=== PATIENT | female | born 1980 | race Caucasian/White ===

== ENCOUNTER 2019-11-18 01:56 | Emergency (ER) | payer OTHER ==
[2019-11-18] MEDS ORDERED: Zofran 4 MG/2 ML VIAL IV ONE (02:09)
[2019-11-18] MEDS ORDERED: Hydromorphone 1 mg/ml Ampule IV ONE (02:09)
[2019-11-18] MEDS ORDERED: Sodium Chloride 0.9% 1000 ML 1,000 ML IV STA (02:09)
[2019-11-18] MEDS ORDERED: PROTONIX 40 MG IV IV ONE ×2 (02:09→02:23)
[2019-11-18] MEDS ORDERED: Hydromorphone 1 mg/ml Ampule ONE (02:23)
[2019-11-18] MEDS ORDERED: Sodium Chloride 0.9% 1000 ML 1,000 ML ONE (02:23)
[2019-11-18] MEDS ORDERED: Zofran 4 MG/2 ML VIAL ONE (02:23)
[2019-11-18 02:29] LABS: Lactic Acid 1.9 (0.4-2.0)
[2019-11-18 02:44] LABS: Absolute Neutrophil Ct (ANC) 6.26 (1.4-6.9); BASOPHIL % 0.2 % (0.0-0.4); Basophil (Absolute #) 0.03 (0-0.4); Eosinophil % 1.5 % (0.00-5.0); Eosinophil (Absolute #) 0.19 (0-0.5); Hemoglobin 11.1 gm/dl (12.0-16.0); Lymphocyte (Absolute #) 5.29 (1.0-4.6); Lymphocytes % 40.8 % (24.0-44.0); Mean Cell Volume 78.6 fl (78-100); Mean Corpuscular Hemoglobin 23.6 pg (26-32); Mean Platelet Volume 11.2 fl (7.5-11.0); Monocyte (Absolute #) 1.19 (0.0-1.3); Monocytes % 9.2 % (0.0-12.0); Neutrophil % 48.3 % (36.0-66.0); Platelet Count 419 K/mm3 (150-450); Red Blood Count 4.71 M/mm3 (4.1-5.4); Red Cell Distribution Width 15.5 % (11.5-14.0)
[2019-11-18 02:51] LABS: INR 0.97 (0.8-3.0)
[2019-11-18 02:55] LABS: ALBUMIN 3.9 g/dL (3.5-5.0); ALKALINE PHOSPHATASE 116 U/L (38-126); AMYLASE 108 U/L (30-110); ANION GAP 12.5 MEQ/L (5-15); BLOOD UREA NITROGEN 9 mg/dL (7-17); CHLORIDE 108 mmol/L (98-107); Calcium 8.9 mg/dL (8.4-10.2); Carbon Dioxide 21 mmol/L (22-30); Creatinine 1 0.63 mg/dL (0.52-1.04); Glucose 127 mg/dL (74-106); LIPASE 175 U/L (23-300); Potassium 3.5 mmol/L (3.5-5.1); SGOT/AST 46 U/L (14-36); SGPT/ALT 34 U/L (0-35); SODIUM 138 mmol/L (137-145); Total Protein 7.8 g/dL (6.3-8.2)
[2019-11-18 03:28] LABS: Slide Review 1 YES
[2019-11-18 04:18] VITALS: O2SAT 99
[2019-11-18 04:55] LABS: Bacteria NONE SEEN /HPF (NEGATIVE); Epithelial Cells OCCASIONAL /HPF (FEW); Hyaline Casts 0-2 /LPF (0-2); Mucus SLIGHT /HPF (NEGATIVE); RBC NONE SEEN /HPF (0-2); WBC NONE SEEN /HPF (0-5)
[2019-11-18 05:00] LABS: Appearance CLEAR (CLEAR); Bilirubin NEGATIVE (NEGATIVE); Blood MODERATE Ery/ul (0-5); Glucose NEGATIVE (NEGATIVE); Ketones NEGATIVE (NEGATIVE); Leukocyte Esterase NEGATIVE (NEGATIVE); Nitrite NEGATIVE (NEGATIVE); Protein,Urine Dip NEGATIVE (Negative); Urobilinogen NORMAL mg/dL (0-1)
--- NOTE | 2019-11-18 06:08 | ERPHSYRPT ---
- History of Present Illness Time Seen by Provider: 11/18/19 02:20 Historian: patient Exam Limitations: no limitations Patient Subjective Stated Complaint: pt states, "I woke up from a sleep with terrrible abdominal pain". Triage Nursing Assessment: pt c/o upper abd pain, that woke her up from a sleep. Rates pain a 9 on 0-10 scale. Pt vomited x1 at home, denies any diarrhea or nausea. Abd lg and soft with active bs x4 quad, nontender. Pain does radiate a little to her back. Abd nontender on palpation. Lungs clear, heart tones reg. Physician History: ppatient is a 31-year-old female who presents with complaint of epigastric pain going through to the back. She awoke from a sound sleep. Sheet he that about 11 PM before going to bed she's had nausea and vomiting she is Jaime was because of DVT and PE. She has had no abdominal surgeries in the past. She does have a history of ultrasound which showed gallstones. Timing/Duration: hour(s) (4) Activities at Onset: none Quality: cramping, stabbing Abdominal Pain Onset Location: epigastric Pain Radiation: back Severity of Pain-Max: severe Severity of Pain-Current: severe Modifying Factors: Improves With: position Associated Symptoms: nausea, vomiting Previous symptoms: no prior history Allergies/Adverse Reactions: cefaclor [From Ceclor] Allergy (Verified 06/14/16 18:17) Shortness of Breath montelukast sodium [From Singulair] Allergy (Verified 06/14/16 18:17) Shortness of Breath Home Medications: Albuterol Sulfate [Proventil Hfa] 2 puff IH BID PRN PRN 01/17/15 [History] Fluticasone Propionate [Flovent Hfa] 2 puff IH BID 01/17/15 [History] Omeprazole 40 mg PO BID 01/17/15 [History] Thyroid,Pork [Wp Thyroid] 32.5 mg PO DAILY 12/29/15 [History] Apixaban [Eliquis] 2.5 mg PO BID 06/14/16 [History] Hx Tetanus, Diphtheria Vaccination/Date Given: No Hx Influenza Vaccination/Date Given: No Hx Pneumococcal Vaccination/Date Given: No Immunizations Up to Date: No - Review of Systems Constitutional: No Fever, No Chills Eyes: No Symptoms Ears, Nose, & Throat: No Symptoms Respiratory: No Cough, No Dyspnea Cardiac: No Chest Pain, No Edema, No Syncope Abdominal/Gastrointestinal: Abdominal Pain, Nausea, Vomiting, No Diarrhea Genitourinary Symptoms: No Symptoms, No Dysuria Musculoskeletal: No Symptoms, No Back Pain, No Neck Pain Skin: No Symptoms, No Rash Neurological: No Symptoms, No Dizziness, No Focal Weakness, No Sensory Changes Psychological: No Symptoms Endocrine: No Symptoms Hematologic/Lymphatic: No Symptoms Immunological/Allergic: No Symptoms All Other Systems: Reviewed and Negative - Past Medical History Pertinent Past Medical History: Yes Neurological History: No Pertinent History ENT History: No Pertinent History Cardiac History: No Pertinent History Respiratory History: Asthma, Pulmonary Embolism Endocrine Medical History: Hypothyroidism Musculoskeletal History: Fractures GI Medical History: No Pertinent History History: No Pertinent History Psycho-Social History: Panic Disorder Female Reproductive Disorders: No Pertinent History Other Medical History: NOTES PAST R ANKLE FRACTURES - Past Surgical History Past Surgical History: Yes Neuro Surgical History: No Pertinent History Cardiac: No Pertinent History Respiratory: No Pertinent History Gastrointestinal: No Pertinent History Genitourinary: No Pertinent History Musculoskeletal: No Pertinent History, Orthopedic Surgery Female Surgical History: No Pertinent History Other Surgical History: 3 KNEE SURGERIES - Social History Smoking Status: Former smoker Exposure to second hand smoke: Yes Drug Use: none Patient Lives Alone: No - Female History Hx Last Menstrual Period: now Hx Now: No - Nursing Vital Signs Nursing Vital Signs: Initial Vital Signs Temperature 97.9 F 11/18/19 02:05 Pulse Rate 76 11/18/19 02:05 Respiratory Rate 24 11/18/19 02:05 Blood Pressure 131/91 11/18/19 02:05 O2 Sat by Pulse Oximetry 100 11/18/19 02:05 Pain Scale Pain Intensity 9 - Physical Exam General Appearance: no apparent distress, moderate distress, alert Eye Exam: PERRL/EOMI, eyes nml inspection Ears, Nose, Throat Exam: normal ENT inspection, pharynx normal, moist mucous membranes Neck Exam: normal inspection, non-tender, supple, full range of motion Respiratory Exam: normal breath sounds, lungs clear, No respiratory distress Cardiovascular Exam: regular rate/rhythm, normal heart sounds Gastrointestinal/Abdomen Exam: soft, tenderness, guarding, rebound, No mass Pelvic Exam: not done Rectal Exam: deferred Back Exam: normal inspection, normal range of motion, No CVA tenderness, No vertebral tenderness Extremity Exam: normal inspection, normal range of motion, pelvis stable Neurologic Exam: alert, oriented x 3, cooperative, normal mood/affect, nml cerebellar function, sensation nml, No motor deficits Skin Exam: normal color, warm, dry SpO2: 99 - Course Nursing assessment & vital signs reviewed: Yes Ordered Tests: Active Orders 24 hr Category Date Time Status IV Insertion STAT Care 11/18/19 02:09 Active ABDOMEN AND PELVIS W CONTRAST [CT] Stat Exams 11/18/19 02:10 Taken AMYLASE Stat Lab 11/18/19 02:42 Completed CBC W DIFF Stat Lab 11/18/19 02:42 Completed CMP Stat Lab 11/18/19 02:42 Completed HCG QUALITATIVE,SERUM Stat Lab 11/18/19 02:42 Completed LIPASE Stat Lab 11/18/19 02:42 Completed Lactic Acid Stat Lab 11/18/19 02:20 Completed Manual Differential NC Stat Lab 11/18/19 02:42 Completed PROTIME WITH INR Stat Lab 11/18/19 02:42 Completed TROPONIN Q3H Lab 11/18/19 02:42 Completed TROPONIN Q3H Lab 11/18/19 05:09 Completed TROPONIN Q3H Lab 11/18/19 08:15 Ordered TROPONIN Q3H Lab 11/18/19 11:15 Ordered TROPONIN Q3H Lab 11/18/19 14:15 Ordered UA W/RFX UR CULTURE Stat Lab 11/18/19 04:17 Completed Medication Summary Discontinued Medications Generic Name Dose Route Start Last Admin Trade Name Freq PRN Reason Stop Dose Admin Hydromorphone HCl 1 mg 11/18/19 02:09 11/18/19 02:26 Hydromorphone 1 Mg/Ml Ampule IV 11/18/19 02:10 1 mg STAT ONE Administration Hydromorphone HCl Confirm 11/18/19 02:23 Hydromorphone 1 Mg/Ml Ampule Administered 11/18/19 02:24 Dose 1 mg .ROUTE .STK-MED ONE Sodium Chloride 1,000 mls @ 999 mls/hr 11/18/19 02:09 11/18/19 02:25 Sodium Chloride 0.9% 1000 Ml IV 11/18/19 03:09 999 mls/hr .Q1H1M STA Administration Sodium Chloride Confirm 11/18/19 02:23 Sodium Chloride 0.9% 1000 Ml Administered 11/18/19 02:24 Dose 1,000 mls @ ud .ROUTE .STK-MED ONE Ondansetron HCl 4 mg 11/18/19 02:09 11/18/19 02:26 Zofran 4 Mg/2 Ml Vial IV 11/18/19 02:10 4 mg STAT ONE Administration Ondansetron HCl Confirm 11/18/19 02:23 Zofran 4 Mg/2 Ml Vial Administered 11/18/19 02:24 Dose 4 mg .ROUTE .STK-MED ONE Pantoprazole Sodium 40 mg 11/18/19 02:09 11/18/19 02:26 Protonix 40 Mg Iv IV 11/18/19 02:10 40 mg STAT ONE Administration Pantoprazole Sodium Confirm 11/18/19 02:23 Protonix 40 Mg Iv Administered 11/18/19 02:24 Dose 40 mg IV .STK-MED ONE Lab/Rad Data: Laboratory Result Diagrams 11/18/19 02:42 11/18/19 02:42 Laboratory Results 11/18/19 11/18/19 11/18/19 Range/Units 05:09 04:17 02:42 WBC (4.0-10.5) K/mm3 RBC (4.1-5.4) M/mm3 Hgb (12.0-16.0) gm/dl Hct (35-47) % MCV (78-100) fl MCH (26-32) pg MCHC (32-36) g/dl RDW (11.5-14.0) % Plt Count (150-450) K/mm3 MPV (7.5-11.0) fl Gran % (36.0-66.0) % Eos # (Auto) (0-0.5) Absolute Lymphs (auto) (1.0-4.6) Absolute Monos (auto) (0.0-1.3) Lymphocytes % (24.0-44.0) % Monocytes % (0.0-12.0) % Eosinophils % (0.00-5.0) % Basophils % (0.0-0.4) % Absolute Granulocytes (1.4-6.9) Basophils # (0-0.4) PT (9.95-12.35) SECONDS INR (0.8-3.0) Sodium (137-145) mmol/L Potassium (3.5-5.1) mmol/L Chloride (98-107) mmol/L Carbon Dioxide (22-30) mmol/L Anion Gap (5-15) MEQ/L BUN (7-17) mg/dL Creatinine (0.52-1.04) mg/dL Estimated GFR ML/MIN Glucose (74-106) mg/dL Lactic Acid (0.4-2.0) Calcium (8.4-10.2) mg/dL Total Bilirubin (0.2-1.3) mg/dL AST (14-36) U/L ALT (0-35) U/L Alkaline Phosphatase (38-126) U/L Troponin I < 0.012 (0.000-0.034) ng/mL Serum Total Protein (6.3-8.2) g/dL Albumin (3.5-5.0) g/dL Amylase (30-110) U/L Lipase (23-300) U/L Serum , Qual NEGATIVE (Negative) Urine Color STRAW (YELLOW) Urine Appearance CLEAR (CLEAR) Urine pH 6.0 (5-6) Ur Specific [place] 1.020 (1.005-1.025) Urine Protein NEGATIVE (Negative) Urine Ketones NEGATIVE (NEGATIVE) Urine Blood MODERATE (0-5) Azam/ul Urine Nitrite NEGATIVE (NEGATIVE) Urine Bilirubin NEGATIVE (NEGATIVE) Urine Urobilinogen NORMAL (0-1) mg/dL Ur Leukocyte Esterase NEGATIVE (NEGATIVE) Urine WBC (Auto) NONE SEEN (0-5) /HPF Urine RBC (Auto) NONE SEEN (0-2) /HPF U Hyaline Cast (Auto) 0-2 (0-2) /LPF U Epithel Cells (Auto) OCCASIONAL (FEW) /HPF Urine Bacteria (Auto) NONE SEEN (NEGATIVE) /HPF Urine Mucus (Auto) SLIGHT (NEGATIVE) /HPF Urine Culture Reflexed NO (NO) Urine Glucose NEGATIVE (NEGATIVE) mg/dL Slides for Path Review 11/18/19 11/18/19 11/18/19 Range/Units 02:42 02:42 02:42 WBC (4.0-10.5) K/mm3 RBC (4.1-5.4) M/mm3 Hgb (12.0-16.0) gm/dl Hct (35-47) % MCV (78-100) fl MCH (26-32) pg MCHC (32-36) g/dl RDW (11.5-14.0) % Plt Count (150-450) K/mm3 MPV (7.5-11.0) fl Gran % (36.0-66.0) % Eos # (Auto) (0-0.5) Absolute Lymphs (auto) (1.0-4.6) Absolute Monos (auto) (0.0-1.3) Lymphocytes % (24.0-44.0) % Monocytes % (0.0-12.0) % Eosinophils % (0.00-5.0) % Basophils % (0.0-0.4) % Absolute Granulocytes (1.4-6.9) Basophils # (0-0.4) PT 11.0 (9.95-12.35) SECONDS INR 0.97 (0.8-3.0) Sodium 138 (137-145) mmol/L Potassium 3.5 (3.5-5.1) mmol/L Chloride 108 H (98-107) mmol/L Carbon Dioxide 21 L (22-30) mmol/L Anion Gap 12.5 (5-15) MEQ/L BUN 9 (7-17) mg/dL Creatinine 0.63 (0.52-1.04) mg/dL Estimated GFR > 60.0 ML/MIN Glucose 127 H (74-106) mg/dL Lactic Acid (0.4-2.0) Calcium 8.9 (8.4-10.2) mg/dL Total Bilirubin 0.40 (0.2-1.3) mg/dL AST 46 H (14-36) U/L ALT 34 (0-35) U/L Alkaline Phosphatase 116 (38-126) U/L Troponin I < 0.012 (0.000-0.034) ng/mL Serum Total Protein 7.8 (6.3-8.2) g/dL Albumin 3.9 (3.5-5.0) g/dL Amylase 108 (30-110) U/L Lipase 175 (23-300) U/L Serum , Qual (Negative) Urine Color (YELLOW) Urine Appearance (CLEAR) Urine pH (5-6) Ur Specific [place] (1.005-1.025) Urine Protein (Negative) Urine Ketones (NEGATIVE) Urine Blood (0-5) Azam/ul Urine Nitrite (NEGATIVE) Urine Bilirubin (NEGATIVE) Urine Urobilinogen (0-1) mg/dL Ur Leukocyte Esterase (NEGATIVE) Urine WBC (Auto) (0-5) /HPF Urine RBC (Auto) (0-2) /HPF U Hyaline Cast (Auto) (0-2) /LPF U Epithel Cells (Auto) (FEW) /HPF Urine Bacteria (Auto) (NEGATIVE) /HPF Urine Mucus (Auto) (NEGATIVE) /HPF Urine Culture Reflexed (NO) Urine Glucose (NEGATIVE) mg/dL Slides for Path Review 11/18/19 11/18/19 Range/Units 02:42 02:20 WBC 13.0 H (4.0-10.5) K/mm3 RBC 4.71 (4.1-5.4) M/mm3 Hgb 11.1 L (12.0-16.0) gm/dl Hct 37.0 (35-47) % MCV 78.6 (78-100) fl MCH 23.6 L (26-32) pg MCHC 30.0 L (32-36) g/dl RDW 15.5 H (11.5-14.0) % Plt Count 419 (150-450) K/mm3 MPV 11.2 H (7.5-11.0) fl Gran % 48.3 (36.0-66.0) % Eos # (Auto) 0.19 (0-0.5) Absolute Lymphs (auto) 5.29 H (1.0-4.6) Absolute Monos (auto) 1.19 (0.0-1.3) Lymphocytes % 40.8 (24.0-44.0) % Monocytes % 9.2 (0.0-12.0) % Eosinophils % 1.5 (0.00-5.0) % Basophils % 0.2 (0.0-0.4) % Absolute Granulocytes 6.26 (1.4-6.9) Basophils # 0.03 (0-0.4) PT (9.95-12.35) SECONDS INR (0.8-3.0) Sodium (137-145) mmol/L Potassium (3.5-5.1) mmol/L Chloride (98-107) mmol/L Carbon Dioxide (22-30) mmol/L Anion Gap (5-15) MEQ/L BUN (7-17) mg/dL Creatinine (0.52-1.04) mg/dL Estimated GFR ML/MIN Glucose (74-106) mg/dL Lactic Acid 1.9 (0.4-2.0) Calcium (8.4-10.2) mg/dL Total Bilirubin (0.2-1.3) mg/dL AST (14-36) U/L ALT (0-35) U/L Alkaline Phosphatase (38-126) U/L Troponin I (0.000-0.034) ng/mL Serum Total Protein (6.3-8.2) g/dL Albumin (3.5-5.0) g/dL Amylase (30-110) U/L Lipase (23-300) U/L Serum , Qual (Negative) Urine Color (YELLOW) Urine Appearance (CLEAR) Urine pH (5-6) Ur Specific [place] (1.005-1.025) Urine Protein (Negative) Urine Ketones (NEGATIVE) Urine Blood (0-5) Azam/ul Urine Nitrite (NEGATIVE) Urine Bilirubin (NEGATIVE) Urine Urobilinogen (0-1) mg/dL Ur Leukocyte Esterase (NEGATIVE) Urine WBC (Auto) (0-5) /HPF Urine RBC (Auto) (0-2) /HPF U Hyaline Cast (Auto) (0-2) /LPF U Epithel Cells (Auto) (FEW) /HPF Urine Bacteria (Auto) (NEGATIVE) /HPF Urine Mucus (Auto) (NEGATIVE) /HPF Urine Culture Reflexed (NO) Urine Glucose (NEGATIVE) mg/dL Slides for Path Review YES - Progress Progress: improved - Departure Departure Disposition: Home Clinical Impression: Biliary colic Condition: Stable Critical Care Time: No Referrals: OMAR ÁLVAREZ [Primary Care Provider] - Instructions: Acute Abdomen (Belly Pain), Adult (DC), Gallstones (DC) Prescriptions: Hydrocodone/APAP 5-325 Tab^^^ [[facility]iance 5-325 Tablet^^^] 1 tab PO Q6HPRN PRN #10 tablet MDD 6 PRN Reason: Pain PANTOPRAZOLE 40 mg Tablet [Protonix 40MG Tablet] 40 mg PO QAM 30 Days #30 tab
[2019-11-18 06:26] VITALS: BP 104/61; PULSE 74
--- NOTE | 2019-11-18 07:43 | XRAY ---
Indication: Abdomen pain and elevated AST. Multiple contiguous axial images obtained through the abdomen and pelvis using 80 cc of Isovue-370 contrast only. Comparison: None Lung bases are clear. Heart is not enlarged. Stomach is distended with food/fluid. Noncontrasted stomach and bowel loops appear nonobstructed. Normal appendix. There is mild diffuse scattered colonic fecal debris throughout including rectum. No free fluid/air. Spleen demonstrates a 2.7 cm cyst. Tampon in situ. Remaining liver, gallbladder, pancreas, spleen, adrenal glands, kidneys, ureters, bladder, and uterus appear unremarkable. Minimal aortic calcifications. No AAA or pathologic retroperitoneal lymphadenopathy. Osseous structures intact. Impression: 1. Diffuse fecal stasis without obstruction. 2. Incidental splenic cyst unchanged with respect to CT chest February 06, 2016. Comment: Preliminary interpretation was made by [facility]. No critical discrepancy.
== END 2019-11-18 07:04 | disposition home or self-care (01) ==
LOC: ED 01:56
DX: K80.50 Calculus of bile duct without cholangitis or cholecystitis without obstruction (principal)
CPT/HCPCS: 36000; 36415; 74177; 80053; 81001; 81025; 82150; 83605; 83690; 84484; 85025; 85610; 96374; 96375; 99284; J1170; J2405

== ENCOUNTER 2020-03-15 00:59 | Emergency (ER) | payer OTHER ==
[2020-03-15] MEDS ORDERED: Zofran 4 MG/2 ML VIAL IV ONE (01:49)
[2020-03-15] MEDS ORDERED: Sodium Chloride 0.9% 1000 ML 1,000 ML IV STA (01:49)
[2020-03-15] MEDS ORDERED: MORPHINE SULFATE 4 MG INJ IV ONE (01:49)
[2020-03-15 01:54] VITALS: O2SAT 100
[2020-03-15] MEDS ORDERED: Sodium Chloride 0.9% 1000 ML 1,000 ML ONE (01:55)
[2020-03-15] MEDS ORDERED: Zofran 4 MG/2 ML VIAL ONE (01:55)
[2020-03-15] MEDS ORDERED: MORPHINE SULFATE 4 MG INJ ONE (01:55)
[2020-03-15 01:56] LABS: BASOPHIL % 0.3 % (0.0-0.4); Basophil (Absolute #) 0.04 (0-0.4); Eosinophil % 0.9 % (0.00-5.0); Eosinophil (Absolute #) 0.12 (0-0.5); Hematocrit 37.4 % (35-47); Hemoglobin 11.3 gm/dl (12.0-16.0); Lymphocytes % 14.6 % (24.0-44.0); Mean Cell Volume 78.7 fl (78-100); Mean Corpuscular Hemoglobin 23.8 pg (26-32); Mean Corpuscular Hgb Concent. 30.2 g/dl (32-36); Mean Platelet Volume 11.2 fl (7.5-11.0); Monocyte (Absolute #) 0.66 (0.0-1.3); Monocytes % 5.1 % (0.0-12.0); Neutrophil % 79.1 % (36.0-66.0); Platelet Count 324 K/mm3 (150-450); Red Blood Count 4.75 M/mm3 (4.1-5.4); Red Cell Distribution Width 16.9 % (11.5-14.0)
[2020-03-15 02:08] LABS: Appearance SLIGHTLY CLOUDY (CLEAR); Bilirubin NEGATIVE (NEGATIVE); Blood SMALL Ery/ul (0-5); Epithelial Cells RARE /HPF (FEW); Glucose NEGATIVE (NEGATIVE); Ketones TRACE (NEGATIVE); Leukocyte Esterase NEGATIVE (NEGATIVE); Mucus SLIGHT /HPF (NEGATIVE); Nitrite NEGATIVE (NEGATIVE); Protein,Urine Dip NEGATIVE (Negative); RBC 0-2 /HPF (0-2); Specific Gravity 1.023 (1.005-1.025); Urobilinogen 2 mg/dL (0-1)
[2020-03-15 02:09] LABS: ALBUMIN 4.1 g/dL (3.5-5.0); ALKALINE PHOSPHATASE 126 U/L (38-126); AMYLASE 99 U/L (30-110); ANION GAP 14.4 MEQ/L (5-15); BLOOD UREA NITROGEN 11 mg/dL (7-17); CHLORIDE 106 mmol/L (98-107); Calcium 8.9 mg/dL (8.4-10.2); Carbon Dioxide 23 mmol/L (22-30); Creatinine 1 0.65 mg/dL (0.52-1.04); Glucose 132 mg/dL (74-106); LIPASE 92 U/L (23-300); Potassium 3.8 mmol/L (3.5-5.1); SGOT/AST 102 U/L (14-36); SGPT/ALT 48 U/L (0-35); SODIUM 140 mmol/L (137-145)
--- NOTE | 2020-03-15 02:11 | ERPHSYRPT ---
- History of Present Illness Time Seen by Provider: 03/15/20 01:11 Patient Subjective Stated Complaint: Patient states " I ate some popcorn around 2200 last night and then around 2330 I became severly nauseated and started vomiting". Patient states " I started having severe ABD pain prior to vomiting so I did take 2.5 norco to help with pain but I vomited shortly after". 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 Triage Nursing Assessment: Patient arrived to ER with someone else driving. Patient ambulated self to bed and was independent with changing into gown. Patient A/O times 4. Patient answers questions appropriatley. Patient with upper ABD pain and states it radiates to her back. Patient states she feels full of air and has burning sensation. Patient ABD large, obese and patient states is tender to touch. Patient urinated, urine slightly cloudy in color. No odor present. Patient denies pain or burning upon urination. Oral mucosa clean, pink, moist. Skin turgor < 3 seconds. No S/S of dehydration. Physician History: 39 years old female presented in the ER with chief complaint of sudden onset nausea vomiting and upper abdominal pain more in the epigastric and right upper quadrant area with radiation to the back. Patient reports she ate some popcorn around 10 PM tonight and after an hour started to have all the symptoms. Pain is moderate intensity sharp in nature and has taken half of [place] left over from previous visit but could not keep it down and vomited. 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 No fever or chills reported. Timing/Duration: hour(s) (2) Activities at Onset: rest Quality: sharpness Abdominal Pain Onset Location: RUQ, epigastric Pain Radiation: back Severity of Pain-Max: moderate Severity of Pain-Current: moderate Associated Symptoms: nausea, vomiting Previous symptoms: same symptoms as today Allergies/Adverse Reactions: cefaclor [From Ceclor] Allergy (Verified 03/15/20 01:47) Shortness of Breath montelukast sodium [From Singulair] Allergy (Verified 03/15/20 01:47) Shortness of Breath Home Medications: Albuterol Sulfate [Proventil Hfa] 2 puff IH BID PRN PRN 01/17/15 [History] Fluticasone Propionate [Flovent Hfa] 2 puff IH BID 01/17/15 [History] Omeprazole 40 mg PO BID 01/17/15 [History] Thyroid,Pork [Wp Thyroid] 32.5 mg PO DAILY 12/29/15 [History] Apixaban [Eliquis] 2.5 mg PO BID 06/14/16 [History] Hx Tetanus, Diphtheria Vaccination/Date Given: Yes Hx Influenza Vaccination/Date Given: No Hx Pneumococcal Vaccination/Date Given: No Immunizations Up to Date: Yes Travel Risk - International Travel Have you traveled outside of the country in past 3 weeks: No Have you or anyone close to you been diagnosed with or: No Do your reside in a community with a known COVID-19 case?: Yes If Yes where:: [place] - Coronavirus Screening Has patient experienced Coronavirus symptoms: No - Review of Systems Constitutional: No Symptoms Eyes: No Symptoms Ears, Nose, & Throat: No Symptoms Respiratory: No Symptoms Cardiac: No Symptoms Abdominal/Gastrointestinal: Abdominal Pain, Nausea, Vomiting Genitourinary Symptoms: No Symptoms Musculoskeletal: No Symptoms Skin: No Symptoms Neurological: No Symptoms Psychological: No Symptoms Endocrine: No Symptoms Hematologic/Lymphatic: No Symptoms Immunological/Allergic: No Symptoms - Past Medical History Pertinent Past Medical History: Yes Neurological History: No Pertinent History ENT History: No Pertinent History Cardiac History: No Pertinent History Respiratory History: Asthma, Pulmonary Embolism Endocrine Medical History: Hypothyroidism Musculoskeletal History: Fractures GI Medical History: No Pertinent History History: No Pertinent History Psycho-Social History: Panic Disorder Female Reproductive Disorders: No Pertinent History Other Medical History: NOTES PAST R ANKLE FRACTURES, Factor II Clotting Disorder - Past Surgical History Past Surgical History: Yes Neuro Surgical History: No Pertinent History Cardiac: No Pertinent History Respiratory: No Pertinent History Gastrointestinal: No Pertinent History Genitourinary: No Pertinent History Musculoskeletal: No Pertinent History, Orthopedic Surgery Female Surgical History: No Pertinent History Other Surgical History: 3 KNEE SURGERIES - Social History Smoking Status: Former smoker Exposure to second hand smoke: No Drug Use: none Patient Lives Alone: No - Female History Hx Last Menstrual Period: Girlfriend Hx Now: No - Nursing Vital Signs Nursing Vital Signs: Initial Vital Signs Temperature 98.3 F 03/15/20 01:15 Pulse Rate 97 H 03/15/20 01:15 Respiratory Rate 18 03/15/20 01:15 Blood Pressure 157/87 03/15/20 01:15 O2 Sat by Pulse Oximetry 99 03/15/20 01:15 Pain Scale Pain Intensity 0 - Physical Exam General Appearance: no apparent distress Eye Exam: PERRL/EOMI, eyes nml inspection Ears, Nose, Throat Exam: normal ENT inspection, TMs normal, pharynx normal Neck Exam: normal inspection, supple, full range of motion Respiratory Exam: normal breath sounds, lungs clear Cardiovascular Exam: regular rate/rhythm, normal heart sounds Gastrointestinal/Abdomen Exam: soft, tenderness, guarding (Upper quadrant) Back Exam: normal inspection, normal range of motion Extremity Exam: normal inspection, normal range of motion Neurologic Exam: alert, oriented x 3, cooperative Skin Exam: normal color SpO2 Interpretation: normal SpO2: 100 O2 Delivery: Room Air - Course Nursing assessment & vital signs reviewed: Yes Ordered Tests: Active Orders 24 hr Category Date Time Status IV Insertion STAT Care 03/15/20 01:49 Active Isolation, Initiate & Maintain Q4H Care 03/15/20 01:37 Active NPO (ED) STAT Care 03/15/20 01:49 Active ABDOMEN AND PELVIS W CONTRAST [CT] Stat Exams 03/15/20 01:49 Taken AMYLASE Stat Lab 03/15/20 01:45 Completed CBC W DIFF Stat Lab 03/15/20 01:45 Completed CMP Stat Lab 03/15/20 01:45 Completed HCG,QUALITATIVE URINE Stat Lab 03/15/20 01:45 Completed LIPASE Stat Lab 03/15/20 01:45 Completed UA W/RFX UR CULTURE Stat Lab 03/15/20 01:45 Completed Medication Summary Discontinued Medications Generic Name Dose Route Start Last Admin Trade Name Freq PRN Reason Stop Dose Admin Sodium Chloride 1,000 mls @ 999 mls/hr 03/15/20 01:49 03/15/20 01:56 Sodium Chloride 0.9% 1000 Ml IV 03/15/20 02:49 999 mls/hr .Q1H1M STA Administration Sodium Chloride Confirm 03/15/20 01:55 Sodium Chloride 0.9% 1000 Ml Administered 03/15/20 01:56 Dose 1,000 mls @ ud .ROUTE .STK-MED ONE Morphine Sulfate 4 mg 03/15/20 01:49 03/15/20 01:56 Morphine Sulfate 4 Mg Inj IV 03/15/20 01:50 4 mg STAT ONE Administration Morphine Sulfate Confirm 03/15/20 01:55 Morphine Sulfate 4 Mg Inj Administered 03/15/20 01:56 Dose 4 mg .ROUTE .STK-MED ONE Ondansetron HCl 4 mg 03/15/20 01:49 03/15/20 01:56 Zofran 4 Mg/2 Ml Vial IV 03/15/20 01:50 4 mg STAT ONE Administration Ondansetron HCl Confirm 03/15/20 01:55 Zofran 4 Mg/2 Ml Vial Administered 03/15/20 01:56 Dose 4 mg .ROUTE .STK-MED ONE Lab/Rad Data: Laboratory Result Diagrams 03/15/20 01:45 03/15/20 01:45 Laboratory Results 03/15/20 03/15/20 03/15/20 Range/Units 01:45 01:45 01:45 WBC (4.0-10.5) K/mm3 RBC (4.1-5.4) M/mm3 Hgb (12.0-16.0) gm/dl Hct (35-47) % MCV (78-100) fl MCH (26-32) pg MCHC (32-36) g/dl RDW (11.5-14.0) % Plt Count (150-450) K/mm3 MPV (7.5-11.0) fl Gran % (36.0-66.0) % Eos # (Auto) (0-0.5) Absolute Lymphs (auto) (1.0-4.6) Absolute Monos (auto) (0.0-1.3) Lymphocytes % (24.0-44.0) % Monocytes % (0.0-12.0) % Eosinophils % (0.00-5.0) % Basophils % (0.0-0.4) % Absolute Granulocytes (1.4-6.9) Basophils # (0-0.4) Sodium 140 (137-145) mmol/L Potassium 3.8 (3.5-5.1) mmol/L Chloride 106 (98-107) mmol/L Carbon Dioxide 23 (22-30) mmol/L Anion Gap 14.4 (5-15) MEQ/L BUN 11 (7-17) mg/dL Creatinine 0.65 (0.52-1.04) mg/dL Estimated GFR > 60.0 ML/MIN Glucose 132 H (74-106) mg/dL Calcium 8.9 (8.4-10.2) mg/dL Total Bilirubin 0.50 (0.2-1.3) mg/dL AST 102 H (14-36) U/L ALT 48 H (0-35) U/L Alkaline Phosphatase 126 (38-126) U/L Serum Total Protein 8.0 (6.3-8.2) g/dL Albumin 4.1 (3.5-5.0) g/dL Amylase 99 (30-110) U/L Lipase 92 (23-300) U/L Urine Color YELLOW (YELLOW) Urine Appearance SLIGHTLY CLOUDY (CLEAR) Urine pH 5.0 (5-6) Ur Specific [place] 1.023 (1.005-1.025) Urine Protein NEGATIVE (Negative) Urine Ketones TRACE (NEGATIVE) Urine Blood SMALL (0-5) Azam/ul Urine Nitrite NEGATIVE (NEGATIVE) Urine Bilirubin NEGATIVE (NEGATIVE) Urine Urobilinogen 2 (0-1) mg/dL Ur Leukocyte Esterase NEGATIVE (NEGATIVE) Urine WBC (Auto) NONE (0-5) /HPF Urine RBC (Auto) 0-2 (0-2) /HPF U Hyaline Cast (Auto) 3-5 (0-2) /LPF U Epithel Cells (Auto) RARE (FEW) /HPF Urine Bacteria (Auto) NONE (NEGATIVE) /HPF Urine Mucus (Auto) SLIGHT (NEGATIVE) /HPF Urine Culture Reflexed NO (NO) Urine Glucose NEGATIVE (NEGATIVE) mg/dL Urine HCG, Qual NEGATIVE (Negative) 03/15/20 Range/Units 01:45 WBC 13.0 H (4.0-10.5) K/mm3 RBC 4.75 (4.1-5.4) M/mm3 Hgb 11.3 L (12.0-16.0) gm/dl Hct 37.4 (35-47) % MCV 78.7 (78-100) fl MCH 23.8 L (26-32) pg MCHC 30.2 L (32-36) g/dl RDW 16.9 H (11.5-14.0) % Plt Count 324 (150-450) K/mm3 MPV 11.2 H (7.5-11.0) fl Gran % 79.1 H (36.0-66.0) % Eos # (Auto) 0.12 (0-0.5) Absolute Lymphs (auto) 1.90 (1.0-4.6) Absolute Monos (auto) 0.66 (0.0-1.3) Lymphocytes % 14.6 L (24.0-44.0) % Monocytes % 5.1 (0.0-12.0) % Eosinophils % 0.9 (0.00-5.0) % Basophils % 0.3 (0.0-0.4) % Absolute Granulocytes 10.30 H (1.4-6.9) Basophils # 0.04 (0-0.4) Sodium (137-145) mmol/L Potassium (3.5-5.1) mmol/L Chloride (98-107) mmol/L Carbon Dioxide (22-30) mmol/L Anion Gap (5-15) MEQ/L BUN (7-17) mg/dL Creatinine (0.52-1.04) mg/dL Estimated GFR ML/MIN Glucose (74-106) mg/dL Calcium (8.4-10.2) mg/dL Total Bilirubin (0.2-1.3) mg/dL AST (14-36) U/L ALT (0-35) U/L Alkaline Phosphatase (38-126) U/L Serum Total Protein (6.3-8.2) g/dL Albumin (3.5-5.0) g/dL Amylase (30-110) U/L Lipase (23-300) U/L Urine Color (YELLOW) Urine Appearance (CLEAR) Urine pH (5-6) Ur Specific [place] (1.005-1.025) Urine Protein (Negative) Urine Ketones (NEGATIVE) Urine Blood (0-5) Azam/ul Urine Nitrite (NEGATIVE) Urine Bilirubin (NEGATIVE) Urine Urobilinogen (0-1) mg/dL Ur Leukocyte Esterase (NEGATIVE) Urine WBC (Auto) (0-5) /HPF Urine RBC (Auto) (0-2) /HPF U Hyaline Cast (Auto) (0-2) /LPF U Epithel Cells (Auto) (FEW) /HPF Urine Bacteria (Auto) (NEGATIVE) /HPF Urine Mucus (Auto) (NEGATIVE) /HPF Urine Culture Reflexed (NO) Urine Glucose (NEGATIVE) mg/dL Urine HCG, Qual (Negative) - Progress Progress: improved, re-examined Progress Note: 03/15/20 03:29 39 years old is evaluated for epigastric/right upper quadrant pain sudden onset with vomiting. She is given IV fluid and pain medication. On reevaluation patient is feeling much better her pain is almost completely gone. sHe is not nauseated anymore. Work-up showed white count of 13 with mildly elevated liver enzymes but normal bilirubin. I have obtained CT with contrast which showed cholelithiasis but no signs of acute cholecystitis. Patient does have similar pains in the past. I believe patient has biliary colic and needs further evaluation and may be cholecystectomy. I would give her referral for general surgery for reevaluation and further management. Patient does have [place] at home for pain which she is advised to take as needed and will will give Zofran to take as needed basis. Discussed signs symptoms of worsening needing return to ER which she seemed understanding. Counseled pt/family regarding: lab results, diagnosis, need for follow-up, rad results - Departure Departure Disposition: Home Clinical Impression: Biliary colic symptom Condition: Stable Critical Care Time: Yes Referrals: OMAR ÁLVAREZ [Primary Care Provider] - (1-2 days for re evaluation) SHANTELL GAMBOA MD [ASSOCIATE STAFF] - (1-2 days for re evaluation ) Instructions: Acute Abdomen (Belly Pain), Adult (DC), Gallstones (DC) Additional Instructions: Take pain medications which you have at home as needed. Take Zofran as needed. Follow-up with general surgery and primary care for reevaluation. Return to ER for intractable pain, vomiting, fever or chills. Take less fatty food Prescriptions: Ondansetron ODT 4 MG [Zofran Odt 4 mg] 4 mg PO Q6H PRN PRN #10 tab.rapdis PRN Reason: Vomiting
[2020-03-15 03:02] VITALS: BP 135/67
[2020-03-15 03:04] VITALS: PULSE 79
--- NOTE | 2020-03-15 09:12 | XRAY ---
Indication: Abdomen pain. Cholecystitis versus pancreatitis. Multiple contiguous axial images obtained through the abdomen and pelvis using 80 cc Isovue 370 contrast only as ordered. Comparison: November 18, 2019. Lung bases remain clear. Heart is not enlarged. Noncontrasted stomach and bowel loops remain nonobstructed. Normal appendix. Minimal descending and sigmoid diverticulosis. No free fluid/air. Stable 21.5 cm hepatomegaly, 8mm left lobe hepatic hemangioma, 14.5 cm splenomegaly, and 3 cm splenic cyst. Gallbladder lumen now demonstrates very faint curvilinear density, possible gallstone. Remaining liver, gallbladder, pancreas, spleen, adrenal glands, kidneys, ureters, bladder, and uterus appear unremarkable. Stable minimal aortic calcifications. No AAA or pathologic retroperitoneal lymphadenopathy. Osseous structures remain intact. Impression: 1. Query faint gallstone. Gallbladder sonogram may yield further information. 2. Stable hepatosplenomegaly, tiny hepatic hemangioma, and splenic cyst. Comment: Preliminary interpretation was made by [facility]. No critical discrepancy.
== END 2020-03-15 03:39 | disposition home or self-care (01) ==
LOC: ED 00:59
DX: K83.9 Disease of biliary tract, unspecified (principal); Z86.711 Personal history of pulmonary embolism; E03.9 Hypothyroidism, unspecified; J45.909 Unspecified asthma, uncomplicated
CPT/HCPCS: 36000; 36415; 74177; 80053; 81001; 82150; 83690; 84703; 85025; 96360; 96374; 96375; 99284; J2270; J2405

== ENCOUNTER 2020-04-25 13:56 | Emergency (ER) | payer OTHER ==
[2020-04-25] MEDS ORDERED: Zofran 4 MG/2 ML VIAL IV ONE (14:32)
[2020-04-25] MEDS ORDERED: PROTONIX 40 MG IV IV ONE ×2 (14:32→14:39)
[2020-04-25] MEDS ORDERED: Sodium Chloride 0.9% 1000 ML 1,000 ML IV STA (14:32)
[2020-04-25] MEDS ORDERED: Hydromorphone 1 mg/ml Ampule ONE (14:39)
[2020-04-25] MEDS ORDERED: Zofran 4 MG/2 ML VIAL ONE (14:39)
[2020-04-25] MEDS ORDERED: Sodium Chloride 0.9% 1000 ML 1,000 ML ONE (14:40)
[2020-04-25] MEDS: Hydromorphone 1 mg/ml Ampule IV ONE ×2 (14:43→14:47)
[2020-04-25 15:01] LABS: Absolute Neutrophil Ct (ANC) 6.16 (1.4-6.9); BASOPHIL % 0.6 % (0.0-0.4); Basophil (Absolute #) 0.05 (0-0.4); Eosinophil % 2.2 % (0.00-5.0); Eosinophil (Absolute #) 0.19 (0-0.5); Hematocrit 37.4 % (35-47); Hemoglobin 11.3 gm/dl (12.0-16.0); Lymphocyte (Absolute #) 1.91 (1.0-4.6); Lymphocytes % 21.8 % (24.0-44.0); Mean Cell Volume 78.9 fl (78-100); Mean Corpuscular Hemoglobin 23.8 pg (26-32); Mean Corpuscular Hgb Concent. 30.2 g/dl (32-36); Mean Platelet Volume 10.8 fl (7.5-11.0); Monocyte (Absolute #) 0.46 (0.0-1.3); Monocytes % 5.2 % (0.0-12.0); Neutrophil % 70.2 % (36.0-66.0); Platelet Count 370 K/mm3 (150-450); Red Blood Count 4.74 M/mm3 (4.1-5.4); Red Cell Distribution Width 16.7 % (11.5-14.0); White Blood Count 8.8 K/mm3 (4.0-10.5)
--- NOTE | 2020-04-25 15:05 | XRAY ---
Exam: AP upright portable chest film from 04/25/2020. Comparison: AP upright portable chest film from 01/24/2016. Indication: Abdominal pain; scheduled for cholecystectomy. Findings: The radiograph was obtained in a mildly lordotic projection. The transverse heart size is normal. The todd and mediastinal structures appear unremarkable. There is average inflation of the lungs. Minimal curvilinear stranding is seen adjacent to the left cardiophrenic angle, likely representing minimal atelectasis. No air space infiltrates, vascular congestion, pneumothorax, or pleural fluid is seen. No acute osseous process is seen. Impression: 1. No acute cardiopulmonary disease is seen. The findings are essentially unchanged from 01/24/2016.
[2020-04-25 15:13] LABS: INR 1.11 (0.8-3.0); PROTIME 12.6 SECONDS (9.95-12.35)
[2020-04-25 15:21] LABS: ALBUMIN 4.2 g/dL (3.5-5.0); ALKALINE PHOSPHATASE 94 U/L (38-126); AMYLASE 88 U/L (30-110); ANION GAP 13.5 MEQ/L (5-15); BLOOD UREA NITROGEN 10 mg/dL (7-17); CHLORIDE 106 mmol/L (98-107); Calcium 9.5 mg/dL (8.4-10.2); Carbon Dioxide 24 mmol/L (22-30); Creatinine 1 0.74 mg/dL (0.52-1.04); Glucose 116 mg/dL (74-106); LIPASE 63 U/L (23-300); Potassium 4.2 mmol/L (3.5-5.1); SGOT/AST 26 U/L (14-36); SGPT/ALT 23 U/L (0-35); SODIUM 139 mmol/L (137-145); Total Protein 7.8 g/dL (6.3-8.2)
[2020-04-25 15:28] LABS: Appearance CLEAR (CLEAR); Bacteria MODERATE /HPF (NEGATIVE); Bilirubin NEGATIVE (NEGATIVE); Blood SMALL Ery/ul (0-5); Epithelial Cells RARE /HPF (FEW); Glucose NEGATIVE (NEGATIVE); Ketones NEGATIVE (NEGATIVE); Leukocyte Esterase NEGATIVE (NEGATIVE); Mucus SLIGHT /HPF (NEGATIVE); Nitrite NEGATIVE (NEGATIVE); Protein,Urine Dip NEGATIVE (Negative); RBC 0-2 /HPF (0-2); Specific Gravity 1.004 (1.005-1.025); Urobilinogen NEGATIVE mg/dL (0-1)
[2020-04-25] MEDS ORDERED: GI COCKTAIL 45 ML (Maalox/Lidocaine) PO ONE (15:38)
[2020-04-25 15:39] VITALS: BP 127/63; PULSE 80; O2SAT 99
[2020-04-25] MEDS ORDERED: XYLOCAINE HCl Viscous ONE (15:40)
[2020-04-25] MEDS ORDERED: MAALOX ES 30 ML UNIT DOSE ONE (15:40)
--- NOTE | 2020-04-25 15:42 | XRAY ---
Exam: Gallbladder ultrasound exam from 04/25/2020. Comparison: Gallbladder ultrasound exam from 01/13/2018. Indication: 40 year-old female with pain. Findings: Transverse images of the pancreas reveal no significant abnormality. The liver appears of normal size and relative uniform echogenicity. No focal hepatic mass or intrahepatic biliary duct distention is seen. There is normal blood flow within the main portal vein towards the liver. A normal gallbladder lumen is not seen. However, within the gallbladder fossa there is an area of intense posterior acoustical shadowing emanating from multiple bright specular reflectors which I believe represents a gallstone filled gallbladder. Accurate measurement of the gallbladder wall is difficult due to the marked increased echogenicity and posterior shadowing. The proximal bile duct measures 4.6 mm which is normal. No free fluid is seen within the right upper quadrant. The right kidney measures 10.95 cm in length and reveals no mass or hydronephrosis. Impression: 1. The gallbladder lumen appears completely filled with gallstones with intense posterior acoustical shadowing. This appears similar to the prior gallbladder ultrasound study from 01/13/2018. 2. The proximal common bile duct measures 4.6 mm which is normal. No intrahepatic biliary duct distention is seen. 3. No other significant abnormality is seen within the right upper quadrant.
--- NOTE | 2020-04-25 15:58 | ERPHSYRPT ---
- History of Present Illness Patient Subjective Stated Complaint: Abdominal pain/acid reflux Triage Nursing Assessment: Patient ambulated back to ED and transferred self to bed. Patient A+O X3. Patient's skin pink, warm and dry. Patient complains of right sided abdominal pain that goes to epigastric area. Patient states she feels like she is having a gallbladder attack without the pain in the right side. Patient states she has vomited and had diarrhea today. Patient states her pain is intermittent burning and comes and goes. Abdomen soft and round with BS X 4. Patient is scheduled for gallbladder surgery May [address] Mohan. Physician History: Patient is a 40-year-old L who is scheduled for cholecystectomy on May 08. She presents with symptoms of severe reflux with severe pain with swallowing that radiates into the interscapular area she has had some nausea vomiting and even some diarrhea. She does not however have her typical right upper quadrant biliary colic type pain. This episode of reflux started at 930 this morning before eating she did have no fever no sweats and she had some chills she says that it is a burning fire from her belly to her throat. She refused pain medicine. Timing/Duration: today Activities at Onset: none Quality: burning Abdominal Pain Onset Location: epigastric Pain Radiation: chest Severity of Pain-Max: moderate Severity of Pain-Current: moderate Associated Symptoms: chest pain, heartburn, nausea, vomiting Previous symptoms: same symptoms as today Allergies/Adverse Reactions: cefaclor [From Ceclor] Allergy (Verified 04/25/20 14:14) Shortness of Breath montelukast sodium [From Singulair] Allergy (Verified 04/25/20 14:14) Shortness of Breath Home Medications: Albuterol Sulfate [Proventil Hfa] 2 puff IH BID PRN PRN 01/17/15 [History] Fluticasone Propionate [Flovent Hfa] 2 puff IH BID 01/17/15 [History] Omeprazole 40 mg PO BID 01/17/15 [History] Thyroid,Pork [Wp Thyroid] 32.5 mg PO DAILY 12/29/15 [History] Apixaban [Eliquis] 2.5 mg PO BID 06/14/16 [History] Hx Tetanus, Diphtheria Vaccination/Date Given: Yes Hx Influenza Vaccination/Date Given: No Hx Pneumococcal Vaccination/Date Given: No Immunizations Up to Date: Yes Travel Risk - International Travel Have you traveled outside of the country in past 3 weeks: No - Coronavirus Screening Are you exhibiting any of the following symptoms?: No Close contact with a COVID-19 positive Pt in past 14-21 Days: No - Review of Systems Constitutional: No Fever, No Chills Eyes: No Symptoms Ears, Nose, & Throat: No Symptoms Respiratory: No Cough, No Dyspnea Cardiac: No Chest Pain, No Edema, No Syncope Abdominal/Gastrointestinal: Nausea, Vomiting, Diarrhea, No Abdominal Pain Genitourinary Symptoms: No Dysuria Musculoskeletal: No Back Pain, No Neck Pain Skin: No Rash Neurological: No Dizziness, No Focal Weakness, No Sensory Changes Psychological: No Symptoms Endocrine: No Symptoms All Other Systems: Reviewed and Negative - Past Medical History Pertinent Past Medical History: Yes Neurological History: No Pertinent History ENT History: No Pertinent History Cardiac History: No Pertinent History Respiratory History: Asthma, Pulmonary Embolism Endocrine Medical History: Hypothyroidism Musculoskeletal History: Fractures GI Medical History: No Pertinent History History: No Pertinent History Psycho-Social History: Panic Disorder Female Reproductive Disorders: No Pertinent History Other Medical History: NOTES PAST R ANKLE FRACTURES, Factor II Clotting Disorder - Past Surgical History Past Surgical History: Yes Neuro Surgical History: No Pertinent History Cardiac: No Pertinent History Respiratory: No Pertinent History Gastrointestinal: No Pertinent History Genitourinary: No Pertinent History Musculoskeletal: No Pertinent History, Orthopedic Surgery Female Surgical History: No Pertinent History Other Surgical History: 3 KNEE SURGERIES - Social History Smoking Status: Former smoker Exposure to second hand smoke: No Drug Use: none Patient Lives Alone: No - Female History Hx Last Menstrual Period: one week ago Hx Now: No - Nursing Vital Signs Nursing Vital Signs: Initial Vital Signs Temperature 98.5 F 04/25/20 14:16 Pulse Rate 97 H 04/25/20 14:16 Respiratory Rate 18 04/25/20 14:16 Blood Pressure 158/86 04/25/20 14:16 O2 Sat by Pulse Oximetry 97 04/25/20 14:16 Pain Scale Pain Intensity 3 - Physical Exam General Appearance: mild distress, alert Eye Exam: PERRL/EOMI, eyes nml inspection Ears, Nose, Throat Exam: normal ENT inspection, pharynx normal, moist mucous membranes Neck Exam: normal inspection, non-tender, supple, full range of motion Respiratory Exam: normal breath sounds, lungs clear, No respiratory distress Cardiovascular Exam: regular rate/rhythm, normal heart sounds Gastrointestinal/Abdomen Exam: soft, No tenderness, No mass Back Exam: normal inspection, normal range of motion, No CVA tenderness, No vertebral tenderness Extremity Exam: normal inspection, normal range of motion, pelvis stable Neurologic Exam: alert, oriented x 3, cooperative, normal mood/affect, nml cerebellar function, sensation nml, No motor deficits Skin Exam: normal color, warm, dry SpO2: 99 - Course Nursing assessment & vital signs reviewed: Yes EKG Interpreted by Me: RATE ([id number]), Sinus Rhythm, NORMAL AXIS, NORMAL INTERVALS, prolonged QT interval, NORMAL QRS - Radiology Ultrasound Exam Gallbladder Ultrasound: gall bladder stones Ordered Tests: Active Orders 24 hr Category Date Time Status EKG-ER Only STAT Care 04/25/20 14:32 Active IV Insertion STAT Care 04/25/20 14:32 Active CHEST 1 VIEW (PORTABLE) Stat Exams 04/25/20 14:33 Completed GALLBLADDER [US] Stat Exams 04/25/20 14:33 Completed AMYLASE Stat Lab 04/25/20 14:35 Completed CBC W DIFF Stat Lab 04/25/20 14:35 Completed CMP Stat Lab 04/25/20 14:35 Completed CULTURE,URINE Stat Lab 04/25/20 Received D-DIMER QUANTITATIVE Stat Lab 04/25/20 14:35 Completed LIPASE Stat Lab 04/25/20 14:35 Completed Lactic Acid Stat Lab 04/25/20 14:55 Completed PROTIME WITH INR Stat Lab 04/25/20 14:35 Completed TROPONIN Q3H Lab 04/25/20 14:35 Completed TROPONIN Q3H Lab 04/25/20 17:45 Ordered TROPONIN Q3H Lab 04/25/20 20:45 Ordered TROPONIN Q3H Lab 04/25/20 23:45 Ordered TROPONIN Q3H Lab 04/26/20 02:45 Ordered UA W/RFX UR CULTURE Stat Lab 04/25/20 Completed Medication Summary Discontinued Medications Generic Name Dose Route Start Last Admin Trade Name Freq PRN Reason Stop Dose Admin Al Hydrox/Mg Hydrox/Simethicone Confirm 04/25/20 15:40 Maalox Es 30 Ml Unit Dose Administered 04/25/20 15:41 Dose 30 ml .ROUTE .STK-MED ONE Hydromorphone HCl 1 mg 04/25/20 14:32 04/25/20 14:47 Hydromorphone 1 Mg/Ml Ampule IV 04/25/20 14:33 Not Given STAT ONE Hydromorphone HCl Confirm 04/25/20 14:39 Hydromorphone 1 Mg/Ml Ampule Administered 04/25/20 14:40 Dose 1 mg .ROUTE .STK-MED ONE Sodium Chloride 1,000 mls @ 999 mls/hr 04/25/20 14:32 04/25/20 15:44 Sodium Chloride 0.9% 1000 Ml IV 04/25/20 15:32 Infused .Q1H1M STA Infusion Sodium Chloride Confirm 04/25/20 14:40 Sodium Chloride 0.9% 1000 Ml Administered 04/25/20 14:41 Dose 1,000 mls @ ud .ROUTE .STK-MED ONE Lidocaine HCl Confirm 04/25/20 15:40 Xylocaine Hcl Viscous * Administered 04/25/20 15:41 Dose 15 ml .ROUTE .STK-MED ONE Magnesium Hydroxide 45 ml 04/25/20 15:38 04/25/20 15:42 Gi Cocktail 45 Ml (Maalox/Lidocaine) PO 04/25/20 15:39 45 ml STAT ONE Administration Ondansetron HCl 4 mg 04/25/20 14:32 04/25/20 14:43 Zofran 4 Mg/2 Ml Vial IV 04/25/20 14:33 4 mg STAT ONE Administration Ondansetron HCl Confirm 04/25/20 14:39 Zofran 4 Mg/2 Ml Vial Administered 04/25/20 14:40 Dose 4 mg .ROUTE .STK-MED ONE Pantoprazole Sodium 40 mg 04/25/20 14:32 04/25/20 14:43 Protonix 40 Mg Iv IV 04/25/20 14:33 40 mg STAT ONE Administration Pantoprazole Sodium Confirm 04/25/20 14:39 Protonix 40 Mg Iv Administered 04/25/20 14:40 Dose 40 mg IV .STK-MED ONE Lab/Rad Data: Laboratory Result Diagrams 04/25/20 14:35 04/25/20 14:35 Laboratory Results 04/25/20 04/25/20 04/25/20 Range/Units Unknown 14:55 14:35 WBC (4.0-10.5) K/mm3 RBC (4.1-5.4) M/mm3 Hgb (12.0-16.0) gm/dl Hct (35-47) % MCV (78-100) fl MCH (26-32) pg MCHC (32-36) g/dl RDW (11.5-14.0) % Plt Count (150-450) K/mm3 MPV (7.5-11.0) fl Gran % (36.0-66.0) % Eos # (Auto) (0-0.5) Absolute Lymphs (auto) (1.0-4.6) Absolute Monos (auto) (0.0-1.3) Lymphocytes % (24.0-44.0) % Monocytes % (0.0-12.0) % Eosinophils % (0.00-5.0) % Basophils % (0.0-0.4) % Absolute Granulocytes (1.4-6.9) Basophils # (0-0.4) PT (9.95-12.35) SECONDS INR (0.8-3.0) D-Dimer (215-500) ng/mL Sodium (137-145) mmol/L Potassium (3.5-5.1) mmol/L Chloride (98-107) mmol/L Carbon Dioxide (22-30) mmol/L Anion Gap (5-15) MEQ/L BUN (7-17) mg/dL Creatinine (0.52-1.04) mg/dL Estimated GFR ML/MIN Glucose (74-106) mg/dL Lactic Acid 1.1 (0.4-2.0) Calcium (8.4-10.2) mg/dL Total Bilirubin (0.2-1.3) mg/dL AST (14-36) U/L ALT (0-35) U/L Alkaline Phosphatase (38-126) U/L Troponin I < 0.012 (0.000-0.034) ng/mL Serum Total Protein (6.3-8.2) g/dL Albumin (3.5-5.0) g/dL Amylase (30-110) U/L Lipase (23-300) U/L Urine Color STRAW (YELLOW) Urine Appearance CLEAR (CLEAR) Urine pH 6.0 (5-6) Ur Specific Letts 1.004 (1.005-1.025) Urine Protein NEGATIVE (Negative) Urine Ketones NEGATIVE (NEGATIVE) Urine Blood SMALL (0-5) Azam/ul Urine Nitrite NEGATIVE (NEGATIVE) Urine Bilirubin NEGATIVE (NEGATIVE) Urine Urobilinogen NEGATIVE (0-1) mg/dL Ur Leukocyte Esterase NEGATIVE (NEGATIVE) Urine WBC (Auto) 3-5 (0-5) /HPF Urine RBC (Auto) 0-2 (0-2) /HPF U Epithel Cells (Auto) RARE (FEW) /HPF Urine Bacteria (Auto) MODERATE (NEGATIVE) /HPF Urine Mucus (Auto) SLIGHT (NEGATIVE) /HPF Urine Culture Reflexed YES (NO) Urine Glucose NEGATIVE (NEGATIVE) mg/dL 04/25/20 04/25/20 04/25/20 Range/Units 14:35 14:35 14:35 WBC (4.0-10.5) K/mm3 RBC (4.1-5.4) M/mm3 Hgb (12.0-16.0) gm/dl Hct (35-47) % MCV (78-100) fl MCH (26-32) pg MCHC (32-36) g/dl RDW (11.5-14.0) % Plt Count (150-450) K/mm3 MPV (7.5-11.0) fl Gran % (36.0-66.0) % Eos # (Auto) (0-0.5) Absolute Lymphs (auto) (1.0-4.6) Absolute Monos (auto) (0.0-1.3) Lymphocytes % (24.0-44.0) % Monocytes % (0.0-12.0) % Eosinophils % (0.00-5.0) % Basophils % (0.0-0.4) % Absolute Granulocytes (1.4-6.9) Basophils # (0-0.4) PT 12.6 H (9.95-12.35) SECONDS INR 1.11 (0.8-3.0) D-Dimer 493 (215-500) ng/mL Sodium 139 (137-145) mmol/L Potassium 4.2 (3.5-5.1) mmol/L Chloride 106 (98-107) mmol/L Carbon Dioxide 24 (22-30) mmol/L Anion Gap 13.5 (5-15) MEQ/L BUN 10 (7-17) mg/dL Creatinine 0.74 (0.52-1.04) mg/dL Estimated GFR > 60.0 ML/MIN Glucose 116 H (74-106) mg/dL Lactic Acid (0.4-2.0) Calcium 9.5 (8.4-10.2) mg/dL Total Bilirubin 0.50 (0.2-1.3) mg/dL AST 26 (14-36) U/L ALT 23 (0-35) U/L Alkaline Phosphatase 94 (38-126) U/L Troponin I (0.000-0.034) ng/mL Serum Total Protein 7.8 (6.3-8.2) g/dL Albumin 4.2 (3.5-5.0) g/dL Amylase 88 (30-110) U/L Lipase 63 (23-300) U/L Urine Color (YELLOW) Urine Appearance (CLEAR) Urine pH (5-6) Ur Specific Letts (1.005-1.025) Urine Protein (Negative) Urine Ketones (NEGATIVE) Urine Blood (0-5) Azam/ul Urine Nitrite (NEGATIVE) Urine Bilirubin (NEGATIVE) Urine Urobilinogen (0-1) mg/dL Ur Leukocyte Esterase (NEGATIVE) Urine WBC (Auto) (0-5) /HPF Urine RBC (Auto) (0-2) /HPF U Epithel Cells (Auto) (FEW) /HPF Urine Bacteria (Auto) (NEGATIVE) /HPF Urine Mucus (Auto) (NEGATIVE) /HPF Urine Culture Reflexed (NO) Urine Glucose (NEGATIVE) mg/dL 04/25/20 Range/Units 14:35 WBC 8.8 (4.0-10.5) K/mm3 RBC 4.74 (4.1-5.4) M/mm3 Hgb 11.3 L (12.0-16.0) gm/dl Hct 37.4 (35-47) % MCV 78.9 (78-100) fl MCH 23.8 L (26-32) pg MCHC 30.2 L (32-36) g/dl RDW 16.7 H (11.5-14.0) % Plt Count 370 (150-450) K/mm3 MPV 10.8 (7.5-11.0) fl Gran % 70.2 H (36.0-66.0) % Eos # (Auto) 0.19 (0-0.5) Absolute Lymphs (auto) 1.91 (1.0-4.6) Absolute Monos (auto) 0.46 (0.0-1.3) Lymphocytes % 21.8 L (24.0-44.0) % Monocytes % 5.2 (0.0-12.0) % Eosinophils % 2.2 (0.00-5.0) % Basophils % 0.6 (0.0-0.4) % Absolute Granulocytes 6.16 (1.4-6.9) Basophils # 0.05 (0-0.4) PT (9.95-12.35) SECONDS INR (0.8-3.0) D-Dimer (215-500) ng/mL Sodium (137-145) mmol/L Potassium (3.5-5.1) mmol/L Chloride (98-107) mmol/L Carbon Dioxide (22-30) mmol/L Anion Gap (5-15) MEQ/L BUN (7-17) mg/dL Creatinine (0.52-1.04) mg/dL Estimated GFR ML/MIN Glucose (74-106) mg/dL Lactic Acid (0.4-2.0) Calcium (8.4-10.2) mg/dL Total Bilirubin (0.2-1.3) mg/dL AST (14-36) U/L ALT (0-35) U/L Alkaline Phosphatase (38-126) U/L Troponin I (0.000-0.034) ng/mL Serum Total Protein (6.3-8.2) g/dL Albumin (3.5-5.0) g/dL Amylase (30-110) U/L Lipase (23-300) U/L Urine Color (YELLOW) Urine Appearance (CLEAR) Urine pH (5-6) Ur Specific Letts (1.005-1.025) Urine Protein (Negative) Urine Ketones (NEGATIVE) Urine Blood (0-5) Azam/ul Urine Nitrite (NEGATIVE) Urine Bilirubin (NEGATIVE) Urine Urobilinogen (0-1) mg/dL Ur Leukocyte Esterase (NEGATIVE) Urine WBC (Auto) (0-5) /HPF Urine RBC (Auto) (0-2) /HPF U Epithel Cells (Auto) (FEW) /HPF Urine Bacteria (Auto) (NEGATIVE) /HPF Urine Mucus (Auto) (NEGATIVE) /HPF Urine Culture Reflexed (NO) Urine Glucose (NEGATIVE) mg/dL - Progress Progress: improved - Departure Departure Disposition: Home Clinical Impression: GERD (gastroesophageal reflux disease) Condition: Stable Critical Care Time: No Referrals: OMAR ÁLVAREZ [Primary Care Provider] - Instructions: Acid Reflux and GERD in Adults (DC) Prescriptions: Pantoprazole 20 mg [Protonix 20MG Tablet] 20 mg PO DAILY 30 Days #30 tab
== END 2020-04-25 16:06 | disposition home or self-care (01) ==
LOC: ED 13:56
DX: K21.9 Gastro-esophageal reflux disease without esophagitis (principal); E03.9 Hypothyroidism, unspecified; R10.9 Unspecified abdominal pain; Z86.711 Personal history of pulmonary embolism; Z79.899 Other long term (current) drug therapy; Z79.01 Long term (current) use of anticoagulants
CPT/HCPCS: 36000; 36415; 71045; 76705; 80053; 81001; 82150; 83605; 83690; 84484; 85025; 85379; 85610; 87086; 93005; 96360; 96374; 96375; 99284; J1170; J2405; A9270-GY

== ENCOUNTER 2021-04-02 15:20 | Emergency (ER) | payer OTHER ==
[2021-04-02 15:58] LABS: Absolute Neutrophil Ct (ANC) 4.84 (1.4-6.9); BASOPHIL % 0.2 % (0.0-0.4); Basophil (Absolute #) 0.02 (0-0.4); Eosinophil % 2.6 % (0.00-5.0); Eosinophil (Absolute #) 0.22 (0-0.5); Hematocrit 42.2 % (35-47); Hemoglobin 12.8 gm/dl (12.0-16.0); Lymphocyte (Absolute #) 2.81 (1.0-4.6); Lymphocytes % 33.2 % (24.0-44.0); Mean Cell Volume 82.4 fl (78-100); Mean Corpuscular Hgb Concent. 30.3 g/dl (32-36); Mean Platelet Volume 10.8 fl (7.5-11.0); Monocyte (Absolute #) 0.58 (0.0-1.3); Monocytes % 6.8 % (0.0-12.0); Neutrophil % 57.2 % (36.0-66.0); Platelet Count 341 K/mm3 (150-450); Red Blood Count 5.12 M/mm3 (4.1-5.4); Red Cell Distribution Width 14.9 % (11.5-14.0); White Blood Count 8.5 K/mm3 (4.0-10.5)
[2021-04-02 15:59] LABS: INR 1.04 (0.8-3.0); PROTIME 11.8 SECONDS (9.95-12.35)
[2021-04-02 16:01] LABS: PTT 30.1 SECONDS (25.3-37.0)
[2021-04-02 16:12] LABS: ALBUMIN 4.3 g/dL (3.5-5.0); ALKALINE PHOSPHATASE 112 U/L (38-126); ANION GAP 14.1 MEQ/L (5-15); BLOOD UREA NITROGEN 10 mg/dL (7-17); CHLORIDE 102 mmol/L (98-107); Calcium 9.2 mg/dL (8.4-10.2); Carbon Dioxide 25 mmol/L (22-30); Creatinine 1 0.76 mg/dL (0.52-1.04); EST GLOMERULAR FILTRATION RATE > 60.0 ML/MIN; Glucose 131 mg/dL (74-106); MAGNESIUM 2.2 mg/dL (1.6-2.3); SGOT/AST 47 U/L (14-36); SGPT/ALT 38 U/L (0-35); SODIUM 138 mmol/L (137-145); Total Protein 7.9 g/dL (6.3-8.2)
--- NOTE | 2021-04-02 16:22 | XRAY ---
Indication: Chest pain, short of breath, high blood pressure, and tachycardia. Comparison: April 25, 2020. Portable chest again demonstrates normal heart, lungs, and bony thorax.
--- NOTE | 2021-04-02 17:01 | ERPHSYRPT ---
- History of Present Illness Source: patient Patient Subjective Stated Complaint: SOB and palpitations since 1400 today Triage Nursing Assessment: . Physician History: 40 yo wf w palpitations before arrival. She denies CP but had mild dyspnea/diaphoresis. Pt states that she had just finished eating. She denies CAD/AR/HTN/hyperlipidemia/1ppd until 15-20 yrs ago. Pt has a h/o panic attacks. She is on Eliquis for Factor2 disorder/PE. Timing/Duration: today Activities at Onset: other (Just finished eating) Quality: other (No pain) Chest Pain Radiation: no radiation Severity of Pain-Max: none Severity of Pain-Current: none Modifying Factors: Improves With: nothing Nitro Today/Relief: no nitro taken today Aspirin Treatment Today: no aspirin today Associated Symptoms: denies symptoms Prior Chest Pain/Cardiac Workup: pulmonary embolism Allergies/Adverse Reactions: cefaclor [From Ceclor] Allergy (Verified 04/02/21 15:34) Shortness of Breath montelukast sodium [From Singulair] Allergy (Verified 04/02/21 15:34) Shortness of Breath Home Medications: Albuterol Sulfate [Proventil Hfa] 2 puff IH BID PRN PRN 01/17/15 [History] Fluticasone Propionate [Flovent Hfa] 2 puff IH BID 01/17/15 [History] Apixaban [Eliquis] 2.5 mg PO BID 06/14/16 [History] Hx Tetanus, Diphtheria Vaccination/Date Given: Yes Hx Influenza Vaccination/Date Given: No Hx Pneumococcal Vaccination/Date Given: No Travel Risk - International Travel Have you traveled outside of the country in past 3 weeks: No - Coronavirus Screening Are you exhibiting any of the following symptoms?: No Close contact with a COVID-19 positive Pt in past 14-21 Days: No - Vaccine Status Have you recieved a Covid-19 vaccination: No - Review of Systems Constitutional: No Symptoms Eyes: No Symptoms Ears, Nose, & Throat: No Symptoms Respiratory: Dyspnea Cardiac: Palpitations, No Chest Pain, No Edema, No Syncope, No Orthopnea, No PND Abdominal/Gastrointestinal: No Symptoms, Nausea, No Vomiting Genitourinary Symptoms: No Symptoms Musculoskeletal: No Symptoms Skin: No Symptoms Neurological: No Symptoms Psychological: No Symptoms Endocrine: No Symptoms Hematologic/Lymphatic: No Symptoms Immunological/Allergic: No Symptoms - Past Medical History Pertinent Past Medical History: Yes Neurological History: No Pertinent History ENT History: No Pertinent History Cardiac History: No Pertinent History Respiratory History: Asthma, Pulmonary Embolism Endocrine Medical History: Hypothyroidism Musculoskeletal History: Fractures GI Medical History: No Pertinent History History: No Pertinent History Psycho-Social History: Panic Disorder Female Reproductive Disorders: No Pertinent History Other Medical History: NOTES PAST R ANKLE FRACTURES, Factor II Clotting Disorder - Past Surgical History Past Surgical History: Yes Neuro Surgical History: No Pertinent History Cardiac: No Pertinent History Respiratory: No Pertinent History Gastrointestinal: No Pertinent History, Cholecystectomy Genitourinary: No Pertinent History Musculoskeletal: No Pertinent History, Orthopedic Surgery Female Surgical History: No Pertinent History Other Surgical History: 3 KNEE SURGERIES - Social History Smoking Status: Former smoker Exposure to second hand smoke: No Drug Use: none Patient Lives Alone: No Significant Family History: no pertinent family hx - Female History Hx Last Menstrual Period: 03/24/2021 Hx Now: No - Nursing Vital Signs Nursing Vital Signs: Initial Vital Signs Temperature 97.6 F 04/02/21 15:29 Pulse Rate 104 H 04/02/21 15:29 Respiratory Rate 17 04/02/21 15:29 Blood Pressure 155/85 04/02/21 15:29 O2 Sat by Pulse Oximetry 98 04/02/21 15:29 Pain Scale Pain Intensity 0 - Physical Exam General Appearance: no apparent distress, anxiety Eye Exam: PERRL/EOMI, eyes nml inspection Ears, Nose, Throat Exam: normal ENT inspection, TMs normal, pharynx normal, moist mucous membranes Neck Exam: normal inspection, non-tender, supple Respiratory Exam: normal breath sounds, lungs clear, airway intact, No chest tenderness, No respiratory distress Cardiovascular Exam: tachycardia Gastrointestinal/Abdomen Exam: soft, normal bowel sounds, No tenderness Back Exam: normal inspection, normal range of motion, No CVA tenderness Extremity Exam: normal inspection, normal range of motion Neurologic Exam: alert, oriented x 3, cooperative, healthcare administrator II-XII nml as tested, normal mood/affect, nml cerebellar function, nml station & gait, sensation nml, No motor deficits, No sensory deficit Skin Exam: normal color, warm, dry Lymphatic Exam: adenopathy SpO2 Interpretation: normal SpO2: 97 O2 Delivery: Room Air - Course Nursing assessment & vital signs reviewed: Yes EKG Interpreted by Me: RATE (Sinus tach/Mildly prolonged QTc/No acute ST changes) - Radiology Exams Chest X-ray Interpretation: Discussed w/ radiologist (NAD) Ordered Tests: Active Orders 24 hr Category Date Time Status Printing Screen Assembler STAT Care 04/02/21 15:36 Completed EKG-ER Only STAT Care 04/02/21 15:27 Completed IV Insertion STAT Care 04/02/21 15:36 Completed CHEST 1 VIEW (PORTABLE) Stat Exams 04/02/21 15:27 Completed CBC W DIFF Stat Lab 04/02/21 15:27 Completed CMP Stat Lab 04/02/21 15:27 Completed D-DIMER QUANTITATIVE Stat Lab 04/02/21 15:27 Completed MAGNESIUM Stat Lab 04/02/21 15:27 Completed NT PRO BNP Stat Lab 04/02/21 15:27 Completed PROTIME WITH INR Stat Lab 04/02/21 15:27 Completed PTT Stat Lab 04/02/21 15:27 Completed TROPONIN Q3H Lab 04/02/21 15:27 Completed TROPONIN Q3H Lab 04/02/21 18:30 Completed Lab/Rad Data: Laboratory Result Diagrams 04/02/21 15:27 04/02/21 15:27 Laboratory Results 04/02/21 04/02/21 04/02/21 Range/Units 18:30 15:27 15:27 WBC (4.0-10.5) K/mm3 RBC (4.1-5.4) M/mm3 Hgb (12.0-16.0) gm/dl Hct (35-47) % MCV (78-100) fl MCH (26-32) pg MCHC (32-36) g/dl RDW (11.5-14.0) % Plt Count (150-450) K/mm3 MPV (7.5-11.0) fl Gran % (36.0-66.0) % Eos # (Auto) (0-0.5) Absolute Lymphs (auto) (1.0-4.6) Absolute Monos (auto) (0.0-1.3) Lymphocytes % (24.0-44.0) % Monocytes % (0.0-12.0) % Eosinophils % (0.00-5.0) % Basophils % (0.0-0.4) % Absolute Granulocytes (1.4-6.9) Basophils # (0-0.4) PT (9.95-12.35) SECONDS INR (0.8-3.0) APTT (25.3-37.0) SECONDS D-Dimer 489 (215-500) ng/mL Sodium (137-145) mmol/L Potassium (3.5-5.1) mmol/L Chloride (98-107) mmol/L Carbon Dioxide (22-30) mmol/L Anion Gap (5-15) MEQ/L BUN (7-17) mg/dL Creatinine (0.52-1.04) mg/dL Estimated GFR ML/MIN Glucose (74-106) mg/dL Calcium (8.4-10.2) mg/dL Magnesium (1.6-2.3) mg/dL Total Bilirubin (0.2-1.3) mg/dL AST (14-36) U/L ALT (0-35) U/L Alkaline Phosphatase (38-126) U/L Troponin I < 0.012 < 0.012 (0.000-0.034) ng/mL NT-Pro-B Natriuret Pep (0-450) pg/mL Serum Total Protein (6.3-8.2) g/dL Albumin (3.5-5.0) g/dL 04/02/21 04/02/21 04/02/21 Range/Units 15:27 15:27 15:27 WBC 8.5 (4.0-10.5) K/mm3 RBC 5.12 (4.1-5.4) M/mm3 Hgb 12.8 (12.0-16.0) gm/dl Hct 42.2 (35-47) % MCV 82.4 (78-100) fl MCH 25.0 L (26-32) pg MCHC 30.3 L (32-36) g/dl RDW 14.9 H (11.5-14.0) % Plt Count 341 (150-450) K/mm3 MPV 10.8 (7.5-11.0) fl Gran % 57.2 (36.0-66.0) % Eos # (Auto) 0.22 (0-0.5) Absolute Lymphs (auto) 2.81 (1.0-4.6) Absolute Monos (auto) 0.58 (0.0-1.3) Lymphocytes % 33.2 (24.0-44.0) % Monocytes % 6.8 (0.0-12.0) % Eosinophils % 2.6 (0.00-5.0) % Basophils % 0.2 (0.0-0.4) % Absolute Granulocytes 4.84 (1.4-6.9) Basophils # 0.02 (0-0.4) PT 11.8 (9.95-12.35) SECONDS INR 1.04 (0.8-3.0) APTT 30.1 (25.3-37.0) SECONDS D-Dimer (215-500) ng/mL Sodium 138 (137-145) mmol/L Potassium 4.0 (3.5-5.1) mmol/L Chloride 102 (98-107) mmol/L Carbon Dioxide 25 (22-30) mmol/L Anion Gap 14.1 (5-15) MEQ/L BUN 10 (7-17) mg/dL Creatinine 0.76 (0.52-1.04) mg/dL Estimated GFR > 60.0 ML/MIN Glucose 131 H (74-106) mg/dL Calcium 9.2 (8.4-10.2) mg/dL Magnesium 2.2 (1.6-2.3) mg/dL Total Bilirubin 0.40 (0.2-1.3) mg/dL AST 47 H (14-36) U/L ALT 38 H (0-35) U/L Alkaline Phosphatase 112 (38-126) U/L Troponin I (0.000-0.034) ng/mL NT-Pro-B Natriuret Pep 35.0 (0-450) pg/mL Serum Total Protein 7.9 (6.3-8.2) g/dL Albumin 4.3 (3.5-5.0) g/dL - Progress Progress: improved Progress Note: 04/02/21 18:38 Pt refused Ativan and all meds for anxiety and also refused Clonidine for h ypertension. Pt's HR and BP normalized before DC. Counseled pt/family regarding: lab results, diagnosis, need for follow-up, rad results - Departure Departure Disposition: Home Clinical Impression: Anxiety, Tachycardia Condition: Stable Critical Care Time: No Referrals: OMAR ÁLVAREZ [Primary Care Provider] - Instructions: High Blood Pressure (DC), Anxiety, Adult (DC), Sinus Tachycardia (DC) Additional Instructions: Follow up with your family MD Return to ER for chest pain/Shortness of breath
[2021-04-02 18:40] VITALS: BP 130/71; PULSE 92
[2021-04-02 18:41] VITALS: O2SAT 97
== END 2021-04-02 18:47 | disposition home or self-care (01) ==
LOC: ED 15:20
DX: R00.0 Tachycardia, unspecified (principal); I10 Essential (primary) hypertension
CPT/HCPCS: 36000; 36415; 71045; 80053; 83735; 83880; 84484; 85025; 85379; 85610; 85730; 93005; 93041; 99284